=== PATIENT | female | born 1995 | race Caucasian/White ===

== ENCOUNTER → 2019-10-09 18:40 | Outpatient (BNVA) | payer OTHER, SELFPAY | PROVIDERS: Family Provider Family Medicine; Visit Provider Nurse Practitioner | DX: R50.9 Fever, unspecified (principal) | CPT/HCPCS: 87400 ==

== ENCOUNTER 2021-05-12 15:56 | Emergency (ER) | payer SELFPAY ==
[2021-05-12 16:06] VITALS: BP 120/75; PULSE 97; RESP 16; TEMP 36.4; O2SAT 99; BMI 27.3
--- NOTE | 2021-05-12 16:21 | ED_ITS ---
HPI - Anxiety General: Chief Complaint: Anxiety Stated Complaint: CP Time Seen by Provider: 05/12/21 16:13 History of Present Illness: HPI narrative: Patient having acute anxiety panic attack. Patient under a lot of stress with school and relationship break-up. Patient had tightness in her chest earlier today and she has been emotional throughout the day. Has been at work. Patient has a history anxiety. MD complaint: anxiety Onset (ago): hour(s) Severity: moderate Associated symptoms: Reports no associated symptoms; Deny chest pain, chills, fever(s), headache(s), nausea or vomiting Review of Systems Const: Denies: fever(s), chills or body aches Eyes: Denies: change in vision or blurry vision ENMT: Denies: throat pain or nasal congestion Card: Denies: chest pain or dyspnea on exertion Resp: Denies: dyspnea, productive cough or non-productive cough GI: Denies: abdominal pain, nausea or vomiting Musc: Denies: extremity pain Skin/Breast: Denies: rash Neuro: Denies: headache(s) Psych: Reports: panic attacks (Patient in stressful school ([employer]), and also going through relationship megan); Denies: depression, sleeping less, hopelessness, suicidal ideation or homicidal ideation Shane/Lymph: Denies: easy bruising PFSH ED PFSH: Social History Smoking and tobacco status: never smoked Female Reproductive History: Date of last menstrual period: 04/29/21 Physical Exam Const: COMMON NORMALS: no acute distress, average body habitus and patient oriented x3 GENERAL APPEARANCE: well kempt HENMT: COMMON NORMALS: normocephalic HEAD & SCALP: normal to inspection and normocephalic FACE & SINUS: normal facial exam Eye: COMMON NORMALS: conjunctivae normal GENERAL EYE: appearance normal, both eyes and all related structures CONJUNCTIVA: Yes conjunctivae normal Neck/C-Spine: COMMON NORMALS: no JVD Chest: COMMONS NORMALS: normal inspection of the chest Resp: COMMON NORMALS: normal respiratory effort and clear to auscultation bilaterally AUSCULTATION: clear to auscultation bilaterally Cardio: COMMON NORMALS: no JVD, regular rate and regular rhythm RATE: regular rate RHYTHM: regular rhythm GI: COMMON NORMALS: Normal to inspection, nondistended, normoactive bowel sounds present Extremity: COMMON NORMALS: normal to inspection and full ROM Neuro: COMMON NORMALS: patient oriented x3 Psych: COMMON NORMALS: Normal thought process present and speech normal APPEARANCE: Yes well kempt ATTITUDE: Yes Other attitude/behavior findings present (Psych) (Patient is anxious emotional) ACTIVITY/MOTOR BEHAVIOR: Yes appropriate eye contact SPEECH: Yes normal speech MOOD & AFFECT: Yes anxious THOUGHT PROCESS: Normal thought process present THOUGHT CONTENT: Yes Normal thought content present ATTENTION/CONCENTRATION: Yes attention grossly intact MEMORY/COGNITION: Yes memory grossly intact INSIGHT: Good insight present (Psych) JUDGEMENT: Good judgement present (Psych) Course Vital Signs: Vital signs: Vital Signs Temperature 97.6 F 05/12/21 16:06 Pulse Rate 97 05/12/21 16:06 Respiratory Rate 16 05/12/21 16:06 Blood Pressure 120/75 05/12/21 16:06 Pulse Oximetry 99 05/12/21 16:06 MDM - Anxiety MDM Narrative: Medical decision making narrative: Patient with a panic attack. She has had panic attacks in the past but it has been worse today because she is going through a break-up with her significant other who she has been with for 4 years. School has been very difficult and challenging presently. Patient feels anxious. Patient vehemently denies being suicidal or homicidal. Patient's is here at work today and would just like to go home and rest. Did give her an Ativan which she will take when she gets home and will rest. Strict instructions given to return here if changes or if she feels worse or her emotional state worsens. Discharge Plan Discharge Patient Disposition: Home Clinical Impression: Panic attack as reaction to stress Condition: Stable Prescriptions: No Action cephalexin 500 mg capsule 500 mg PO Q12H Qty: 14 RF: 0 Discharge Orders: Discharge ED (Routine); Ordered 05/12/21 Ordered By: Milad Owens Referrals: Mariluz Uribe MD [Primary Care Provider] - Discharge Diet: Usual diet Activity Restrictions/Additional Instructions: Take your pill any at home, rest, return to work when ready. If worsening symptoms please return to the ER. Coding Level of Care Code ED [facility] for [facility] Fwd Exam Comprehensive
[2021-05-12] MEDS: LORazepam 1 mg Tablet PO (16:26)
== END 2021-05-12 16:33 | disposition home or self-care (01) ==
PROVIDERS: Emergency Provider Nurse Practitioner Family; PCP Family Medicine
DX: F43.0 Acute stress reaction (principal)
CPT/HCPCS: 99283

== ENCOUNTER → 2021-05-16 10:19 | Outpatient (BNVA) | payer OTHER, SELFPAY | PROVIDERS: PCP Family Medicine; Visit Provider Family Medicine | DX: Z20.828 Contact with and (suspected) exposure to other viral communicable diseases (principal) | CPT/HCPCS: 87635 ==

== ENCOUNTER → 2021-08-16 00:01 | Outpatient (BNVA) | payer OTHER, SELFPAY | PROVIDERS: PCP Family Medicine; Visit Provider Family Medicine | DX: Z20.828 Contact with and (suspected) exposure to other viral communicable diseases (principal) | CPT/HCPCS: 87426; 87635 ==

== ENCOUNTER → 2021-08-30 10:52 | Outpatient (BNVA) | payer SELFPAY | PROVIDERS: PCP Family Medicine; Visit Provider Family Medicine | DX: F41.0 Panic disorder [episodic paroxysmal anxiety] (principal); F41.1 Generalized anxiety disorder; Z76.89 Persons encountering health services in other specified circumstances | CPT/HCPCS: 80053; 84443; 85025 ==